=== PATIENT | male | born 1945 | race Caucasian/White ===

== ENCOUNTER 2021-02-07 10:34 | Emergency (ER) | payer MEDICARE, BC ==
[~2021-02-07] VITALS: Ht 172.7 cm; Wt 83.5 kg
[2021-02-07] MEDS ORDERED: CLOP75TA15 PO (10:41)
--- NOTE | 2021-02-07 10:43 | NUR ---
Dr Martinez is at bedside for MSE.
--- NOTE | 2021-02-07 10:50 | NUR ---
technology services manager at bedside.
--- NOTE | 2021-02-07 11:11 | NUR ---
Patient discharged to home in stable condition. Written and verbal after care instructions given. Patient verbalizes understanding of instructions. Stressed follow up or return to ER for worsening s/s. Pt left ER w/ steady gait using own crutches, accompained by .
[2021-02-07 11:12] VITALS: BP 143/84
== END 2021-02-07 11:12 | disposition home or self-care (01) ==
LOC: ER 10:34
DX: M25.562 Pain in left knee (principal); Z95.5 Presence of coronary angioplasty implant and graft; Z79.02 Long term (current) use of antithrombotics/antiplatelets
CPT/HCPCS: A4663

== ENCOUNTER 2021-06-10 13:32 | Emergency (ER) | payer MEDICARE, BC ==
[~2021-06-10] VITALS: Ht 180.3 cm; Wt 81.6 kg
[~2021-06-10 13:32] MED LIST: CLOP75TA15 PO
--- NOTE | 2021-06-10 15:43 | NUR ---
wrapped O2 mask band around finger and under ring, unwound band sliding ring up finger, removed ring, gave ring to pt's .
[2021-06-10] MEDS ORDERED: ACETAMINOPHEN ES 500 MG TABLET PO ONE (15:45)
[2021-06-10] MEDS ORDERED: HYDR-4209 PO (15:51)
== END 2021-06-10 17:01 | disposition home or self-care (01) ==
LOC: ER 13:34
DX: S62.335A Displaced fracture of neck of fourth metacarpal bone, left hand, initial encounter for closed fracture (principal); W01.0XXA Fall on same level from slipping, tripping and stumbling without subsequent striking against object, initial encounter; Y93.01 Activity, walking, marching and hiking; Y92.480 Sidewalk as the place of occurrence of the external cause; I25.10 Atherosclerotic heart disease of native coronary artery without angina pectoris; Z95.5 Presence of coronary angioplasty implant and graft; Z79.02 Long term (current) use of antithrombotics/antiplatelets; E78.00 Pure hypercholesterolemia, unspecified
CPT/HCPCS: 73130; A4663

== ENCOUNTER 2024-02-08 07:34 | Emergency (ER) | payer MEDICARE, BC ==
[~2024-02-08] VITALS: Ht 180.3 cm; Wt 82.6 kg
[~2024-02-08 07:34] MED LIST changes: +HYDR-4209 PO
[2024-02-08] MEDS ORDERED: TDAP DIPH,PERTUSS,TET VAC/PF 0.5 ML DISP.SYRIN IM ONE (08:15)
[2024-02-08] MEDS ORDERED: NEOMY/BACITRA/POLYMYXIN B OINT UD PACKET TP ONE (08:16)
[2024-02-08] MEDS ORDERED: AMOXICILLIN-CLAVUL 875-125MG TABLET ONE (08:16)
[2024-02-08] MEDS ORDERED: AMOX-430 PO (08:17)
[2024-02-08] MEDS: TDAP DIPH,PERTUSS,TET VAC/PF 0.5 ML DISP.SYRIN IM ONE (08:34)
[2024-02-08] MEDS: NEOMY/BACITRA/POLYMYXIN B OINT UD PACKET TP ONE (08:34)
[2024-02-08] MEDS: AMOXICILLIN-CLAVUL 875-125MG TABLET PO ONE (08:34)
[2024-02-08 08:36] VITALS: BP 142/81; TEMP 98.1; O2SAT 97
== END 2024-02-08 10:57 | disposition home or self-care (01) ==
LOC: ER 07:34
DX: S51.831A Puncture wound without foreign body of right forearm, initial encounter (principal); E78.00 Pure hypercholesterolemia, unspecified; Z98.890 Other specified postprocedural states; Z79.899 Other long term (current) drug therapy; W54.0XXA Bitten by dog, initial encounter; Y93.89 Activity, other specified; Y92.89 Other specified places as the place of occurrence of the external cause; Y99.8 Other external cause status
CPT/HCPCS: 90715; A4606; A4663